=== PATIENT | female | born 1965 | race Caucasian/White ===

== ENCOUNTER 2017-04-20 12:53 | Day surgery (SDC) | payer OTHER ==
[~2017-04-20] VITALS: Ht 144.8 cm; Wt 85.8 kg
[2017-04-20] MEDS ORDERED: NO MEDS (13:33)
[2017-04-20 13:34] VITALS: Ht 144.8 cm; Wt 85.8 kg
[2017-04-20 13:46] VITALS: BP 125/59; PULSE 66; RESP 12
[2017-04-20] MEDS ORDERED: LIDOCAINE 2% (SDV) 5 ML INJ ONE (13:53)
[2017-04-20] MEDS ORDERED: PROPOFOL 40 ML ONE (13:53)
[2017-04-20] MEDS ORDERED: MIDAZOLAM 1 MG/ML 2 ML INJ ONE (13:53)
--- NOTE | 2017-04-20 14:18 | OPPN ---
Date/Time of Note Date/Time of Note DATE: 04/20/17 TIME: 14:16 Operative Report Preoperative Diagnosis Screening Postoperative Diagnosis Internal hemorrhoids No colon neoplasm is identified Operation/Procedure Performed Colonoscopy Provider: MITCH CHOWDARY MD Anesthesia Type: MAC Estimated blood loss: none Transfusion Required: no Specimen: none Grafts/Implants: none Complications: no MITCH CHOWDARY MD Apr 20, 2017 14:18
[2017-04-20 14:25] VITALS: BP 103/69; PULSE 70; RESP 14
[2017-04-20 16:13] VITALS: BP 146/99; PULSE 98; RESP 18
--- NOTE | 2017-04-20 20:15 | GILP ---
DATE OF PROCEDURE: 04/20/2017 PROCEDURE PERFORMED: Colonoscopy. SURGEON: Vahid Marrufo MD PREOPERATIVE DIAGNOSIS: Screening colonoscopy. POSTOPERATIVE DIAGNOSES: 1. Colonoscopy all the way to the cecum. 2. Internal hemorrhoids. 3. No colon neoplasm was identified. INDICATION: Ms. Tri Lorenzo is a 52-year-old female patient who was scheduled for screening colonoscopy. The procedure and possible complications were well explained to the patient. She understood and consented to the procedure. DESCRIPTION OF PROCEDURE: Under the influence of anesthesia, the colonoscope was carefully introduced in the rectum. Under direct vision, it was advanced all the way to the cecum. FINDINGS: Patient had internal hemorrhoids. No colon neoplasm was identified. She tolerated the procedure very well. There was no complication from the procedure. At the end of procedure, she was awake with stable vital signs, and she was discharged home in the care of her family. IMPRESSION: Please see postoperative diagnoses. PLAN: Next screening colonoscopy in 10 years. Dictated By: MD CONSTANTINE Linton/judy/g /Document#: [id number]
== END 2017-04-20 14:49 | disposition home or self-care (01) ==
LOC: GIL 12:53
PROVIDERS: ATTEND Internal Medicine Gastroenterology
DX: Z12.11 Encounter for screening for malignant neoplasm of colon (principal); K64.8 Other hemorrhoids
CPT/HCPCS: 45378; J2250